=== PATIENT | female | born 1990 | race American Indian/Alaskan Native ===

== ENCOUNTER 2016-12-13 09:19 | Day surgery (SDC) | payer BC, MEDICAID ==
--- NOTE | 2016-12-10 21:16 | Short Stay Summary ---
Short Stay Documentation Date of service: 12/13/16 Narrative H&P: Seen and examined on DOS--no changes noted-Milton Mehta MD 25 yo A2 with symptomatic labial hypertrophy which causes her discomfort with intercourse, tampons and urination. They also get caught and pinched in in her underwear causing pain. She is admitted for partial vulvectomy with labial reduction bilaterally. NKDA - History Principal diagnosis: labial hypertrophy, bilateral Past Medical History: No medical history Past Surgical History: No surgical history Social history: no significant social history - Allergies and Medications Current Medications: Allergies No Known Allergies Allergy (Verified 12/07/16 10:15) Home Medications Medication Instructions Recorded Confirmed Last Taken Type No Known Home Medications [No 12/07/16 12/07/16 Unknown History Reported Home Medications] Active Medications Cefazolin Sodium (Ancef/Sterile Water 2 Gm/20 Ml) 2 gm in 20 mls @ 80 mls/hr IV PREOP NR PRN Reason: Protocol Lactated Ringer's (Lactated Ringers) 1,000 mls @ 125 mls/hr IV DIRECT JOANN - Physical exam General appearance: no acute distress HEENT: Atraumatic Lungs: Clear to auscultation, Normal air movement Breasts: deferred Heart: Regular rate, Normal S1, No murmurs Gastrointestinal: normal Female Genitourinary: other (normal except for bilateral labial hypertrophy) Extremities: no ischemia, No edema Neurological: Normal gait, Cranial nerves 3-12 NL - Brief post op/procedure progress note Date of procedure: 12/13/16 Pre-op diagnosis: labial hypertrophy Post-op diagnosis: same Procedure: Partial vulvectomy as bilateral labial reduction Anesthesia: MAC Findings: Greatly elongated labia minora especially superiorly both sides Surgeon: MILTON MEHTA Estimated blood loss: minimal Pathology: list (labia minora, bilateral) Specimen disposition: to lab Condition: stable - Hospital course Hospital course: Patient did well in the PACU and was discharged to home care after she was able to ambulate and void - Disposition Condition at discharge: Good Disposition: DC-01 TO HOME OR SELFCARE - Discharge Diagnoses (1) Labia minora hypertrophy Status: Acute Short Stay Discharge Plan Activity: no restrictions (pelvic rest, keep vaseline on incisions, especially while trying to urinate) Weight Bearing Status: Full Weight Bearing Diet: regular Wound: remove dressing (tomorrow and use Vaseline for dressing on incisions as needed. Expect some bleeding. Do not attempt to have intercourse or use tampons) Follow up with: MILTON MEHTA MD [Staff Physician] - 7 Days
[~2016-12-13 09:19] MED LIST: ANCEF/STERILE WATER 2 GM/20 ML 2 GM/20 ML SYRINGE IV NR; NACL 0.9% IR ONE; PEPCID PO NR; VERSED IV NR; XYLOCAINE 1% 20 mL INFILTRATI ONE; XYLOCAINE TOPICAL 2% MM ONE
[2016-12-13] MEDS ORDERED: NACL BACTERIOSTATIC INFILTRATI ONE (09:59)
[2016-12-13] MEDS: LACTATED RINGERS 1,000 ML IV SCH ×2 (10:15→13:40)
[2016-12-13 10:45] LABS: Hematocrit 39.2 % (30.3-42.9); Hemoglobin 13.2 gm/dl (10.1-14.3)
--- NOTE | 2016-12-13 10:48 | Anesthesia Consultation ---
Anesthesia Consult and Med Hx Date of service: 12/13/16 - Airway Anesthetic Teeth Evaluation: Good ROM Head & Neck: Adequate Mental/Hyoid Distance: Adequate Mallampati Class: Class I Intubation Access Assessment: Good - Pulmonary Exam CTA: Yes - Cardiac Exam Cardiac Exam: RRR - Pre-Operative Health Status ASA Pre-Surgery Classification: ASA1 Proposed Anesthetic Plan: General - Pre-Anesthesia Comment Pre-Anesthesia Comments: no family hx anesthetic complications
--- NOTE | 2016-12-13 10:49 | Anesthesia Day of Surgery ---
Anesthesia Day of Surgery - Day of Surgery Patient Examined: Yes Patient H&P Reviewed: Yes Patient is NPO: Yes
[2016-12-13] MEDS ORDERED: THERMAZENE 50 GRAM TP ONE (10:54)
[2016-12-13] MEDS ORDERED: XYLOCAINE TOPICAL 2% ONE (10:55)
[2016-12-13] MEDS ORDERED: XYLOCAINE 2%/ EPI 1:200,000 INFILTRATI ONE (10:55)
[2016-12-13] MEDS ORDERED: ZOFRAN IV PRN (10:58)
[2016-12-13] MEDS ORDERED: PERCOCET 5/325 PO PRN (10:58)
[2016-12-13] MEDS ORDERED: DILAUDID IV PRN (10:58)
[2016-12-13] MEDS ORDERED: DIPRIVAN 10 MG/ML IV ONE (11:15)
[2016-12-13] MEDS ORDERED: SUBLIMAZE ONE (11:15)
[2016-12-13] MEDS ORDERED: XYLOCAINE MPF 2% ONE (11:15)
[2016-12-13] MEDS ORDERED: XYLOCAINE 2%/EPI 1:100,000 INFILTRATI ONE (11:39)
[2016-12-13] MEDS ORDERED: NACL 0.9% IR ONE (11:39)
[2016-12-13] MEDS ORDERED: DECADRON ONE (13:17)
[2016-12-13] MEDS ORDERED: ZOFRAN ONE (13:17)
[2016-12-13] MEDS ORDERED: DILAUDID ONE (13:17)
[2016-12-13] MEDS ORDERED: TORADOL ONE (13:18)
--- NOTE | 2016-12-13 13:19 | Operative Report ---
Operative Report Operative Report: Date: 12/13/2016 Procedure: labial reduction by simple partial vulvectomy PreOp Dx: bilateral symptomatic labia minora hypertrophy PostOp Dx: same Surgeon: Maria E Lux MD Asst: OPERATIONS INSPECTOR EBL: <10 mL Procedure in detail: Patient was taken to OR and placed in supine position and general anesthesia was induced. She was prepped and draped in the dorso- lithotomy position and surgical time-out was taken. In turn each labial minora was grasped with several Allis clamps and extended under tension. The proposed incision site in a slight ellipse was marked with a surgical marking pen and then incised with the scalpel and removed. The resulting incisions were then closed with about ten interuptted sutures of 4-0 Monocryl on each side. There appeared to be a good cosmetic result with a roughly equal appearance on each side. The procedure was then terminated, the incisions were dressed with petrolatum gauze pieces and a Kotex pad and she was awakened and discharge to the PACU in good condition.
--- NOTE | 2016-12-13 13:33 | Post Anesthesia Evaluation ---
- Post Anesthesia Evaluation Patient Participated: Yes Airway Patent: Yes Stable Respiratory Function: Yes Nausea/Vomiting: No Temp > 96.8F: Yes Pain Manageable: Yes Adequeate Hydration: Yes Anesthesia Complications: No Block Receding Appropriately: Not Applicable Patient on Ventilator: No
[2016-12-13 18:00] VITALS: BP 131/68
== END 2016-12-13 15:41 | disposition home or self-care (01) ==
LOC: OR 09:19
PROVIDERS: ATTEND Obstetrics & Gynecology
DX: N90.60 Unspecified hypertrophy of vulva (principal)
CPT/HCPCS: 36415; 56620; 81025; 85014; 85018; 88305; J0690; J1100; J1170; J1885; J2250; J2405; J2704; J3010; J7120; 88309

== ENCOUNTER 2020-06-17 10:47 | Outpatient (CLI) | payer BC, MEDICAID ==
[2020-06-17 12:27] LABS: Bacteria,Urine 4+ /HPF (Negative); Bilirubin,Urine NEG (Negative); Blood,Urine NEG (Negative); Color,Urine Straw (Yellow); Hyaline Casts,Urine 1 /LPF; Protein,Urine <15 mg/dL mg/dL (Negative); Urobilinogen,Urine < 2.0 mg/dL (<2.0)
[2020-06-17] MEDS ORDERED: LACTATED RINGERS 500 ML IV ONE (12:27)
[2020-06-17 12:33] LABS: Hematocrit 32.3 % (30.3-42.9); Hemoglobin 11.2 gm/dl (10.1-14.3); Mean Corpuscular HGB Conc 35 % (30-34); Mean Corpuscular Volume 91 fl (79-97); Platelet Count 241 K/mm3 (140-440); Red Blood Count 3.54 M/mm3 (3.65-5.03); Red Cell Distribution Width 13.6 % (13.2-15.2)
[2020-06-17 12:34] LABS: Alanine Aminotransferase 11 units/L (7-56); Uric Acid 3.4 mg/dL (3.5-7.6)
[2020-06-17 14:22] VITALS: BP 112/72
--- NOTE | 2020-06-17 14:23 | Vascular Lab Report ---
DUPLEX DOPPLER LOWER EXTREMITY VEINS, BILATERAL INDICATION / CLINICAL INFORMATION: pain in lower extremities. TECHNIQUE: Duplex doppler imaging was performed through the veins of both lower extremities using venous mele katherine and other maneuvers. COMPARISON: None available. FINDINGS: RIGHT COMMON FEMORAL VEIN: Negative. RIGHT FEMORAL VEIN: Negative. RIGHT POPLITEAL VEIN: Negative. RIGHT CALF VEINS: Negative. LEFT COMMON FEMORAL VEIN: Negative. LEFT FEMORAL VEIN: Negative. LEFT POPLITEAL VEIN: Negative. LEFT CALF VEINS: Negative. ADDITIONAL FINDINGS: None. IMPRESSION: 1. No sonographic evidence for DVT in either lower extremity. Signer Name: Wood Duncan MD Signed: 06/17/2020 2:19 PM Workstation Name: [email or web address]
== END 2020-06-17 14:46 | disposition home or self-care (01) ==
LOC: TRG 10:47 → APU 10:49 → TRG 14:46
PROVIDERS: ATTEND Obstetrics & Gynecology
DX: O26.893 Other specified pregnancy related conditions, third trimester (principal); R60.9 Edema, unspecified; Z3A.36 36 weeks gestation of pregnancy
CPT/HCPCS: 36415; 59025; 81001; 82565; 83615; 84450; 84460; 84550; 85027; 93970